=== PATIENT | male | born 1965 | race Caucasian/White ===

== ENCOUNTER → 2018-09-07 | Outpatient (CLI) | payer SELFPAY ==
[~2018-09-07] MED LIST: ACET-1966 PO; AMLO-125 PO; AMOX-362 PO; AMOX-559 PO; AZIT500T45 PO; CEPH-13 PO; DIA5 PO; DOCU-416 PO; DOXE10CA25 PO; DOXE50CA46 PO; HYDR-653 PO; IBUP800T37 PO; LOR5/325 PO; OXYC-854 PO; PER PO; SULF-198 PO; TERA2CAP54 PO; TERA5CAP59 PO; TRAM-420 PO; [UNRECOGNIZED DRUG - CODE] ENA
--- NOTE | 2018-09-07 16:11 | RADIOLOGY IMAGING REPORT ---
FACILITY: [facility] [place] PATIENT NAME: Jame Urrutia : 1965 MR: [id number] V: [id number] EXAM DATE: ORDERING PHYSICIAN: MANOJ IVERSON TECHNOLOGIST: Location: [facility] Patient: Jame Urrutia : 1965 Visit/Account:[id number] Date of Sevice: 09/07/2018 Lumbar spine 3 views: HISTORY: Low back pain COMPARISON: 08/10/2016 FINDINGS: 3 views were obtained of the lumbar spine. There are 5 nonrib-bearing lumbar-type vertebra l bodies. Alignment is anatomic. There is no spondylolisthesis or definite evidence spondylolysis. There is again noted to be mild disc space narrowing at L1-3 with mild endplate sclerosis and osteop hyte formation. Osteophytes project off the endplates at the L3-4 level. Mild facet arthropathy pre sent at L4-5. Again noted is partial sacralization of L5 versus diminutive disc space. Vertebral body height is pr eserved. There is no focal compression deformity. IMPRESSION: 1. Mild spondylitic changes most significant at L2-3, these changes have progressed slightly compare d to previous. 2. No focal compression deformity. Report Dictated By: Rima Villagran MD at 09/07/2018 3:59 PM Report E-Signed By: Rima Villagran MD at 09/07/2018 4:04 PM WSN:[email or web address]
== END ==
LOC: RAD 13:40
PROVIDERS: ATTEND Internal Medicine
DX: M54.5 Low back pain (principal)
CPT/HCPCS: 72100

== ENCOUNTER 2018-10-30 13:25 | Emergency (ER) | payer MEDICAID ==
--- NOTE | 2018-10-30 13:35 | ER Report ---
History and Physical Time Seen By MD: 13:27 HPI/ROS CHIEF COMPLAINT: Cough HISTORY OF PRESENT ILLNESS: This is a 53-year-old male who presents to the emergency department for cough. Patient states that he's had a semi-productive cough that part of one week. He states that he was up in [employer] and also works with [employer], he states that over the last several days the coughing has increased in intensity, no fevers at home, no nausea or vomiting. No rashes. Denies chest pain. He does smoke cigarettes, no history of asthma. REVIEW OF SYSTEMS: Respiratory: As above Cardiovascular: No chest pain, no palpitations. Gastrointestinal: No vomiting, no abdominal pain. Musculoskeletal: No back pain. Allergies: Coded Allergies: No Known Drug Allergies (Unverified , 10/30/18) Home Meds Active Scripts Prednisone (PREDNISONE) 20 Mg Tablet, 20 MG PO BID, #10 TAB Prov:SIM CURRAN [facility] 10/30/18 Benzonatate (BENZONATATE) 200 Mg Capsule, 200 MG PO TID PRN for COUGH, #15 CAP Prov:SIM CURRAN [facility] 10/30/18 Azithromycin 250 Mg Tab (AZITHROMYCIN 250 MG TAB) 250 Mg Tablet, 1 TAB PO QDAY, #6 TAB Take 2 tabs today and then 1 tab a day until gone. Prov:SIM CURRAN [facility] 10/30/18 Sulfamethoxazole/Trimet 800-160 Mg Tab (BACTRIM DS TABLET) 1 Each Tablet, 1 TAB PO Q12H, #20 TAB 0 Refills Prov:KHUSHBOO GARLAND MD 07/22/16 Amoxicillin/Pot Clav 875-125 Mg Tab (AUGMENTIN 875-125 TABLET) 1 Each Tablet, 1 TAB PO BID, #14 TAB 0 Refills Prov:YENNIFER BARAHONA MD 03/31/16 Oxycodone Hcl/Acet 5/325 Mg (ENDOCET 5-325 TABLET) 1 Each Tablet, 1 TAB PO Q4H PRN for PAIN, #14 TAB 0 Refills Prov:YENNIFER BARAHONA MD 03/31/16 Reported Medications Doxepin Hcl (DOXEPIN HCL) 10 Mg Capsule, 10 MG PO, CAPSULE 03/01/16 Diazepam (VALIUM) 5 Mg Tablet, 5 MG PO PRN, #5 TAB 03/01/16 Terazosin Hcl (TERAZOSIN HCL) 5 Mg Capsule, 5 MG PO QHS, CAPSULE 03/01/16 Amlodipine Besylate (AMLODIPINE BESYLATE) 5 Mg Tablet, 1 TAB PO QDAY, TAB 03/01/16 Past Medical/Surgical History The patient has a past medical and surgical history of hypothyroidism, angina, hypertension, COPD, enlarged prostate, depression, alcohol use occasional, smokes cigarettes. Reviewed Nurses Notes: Yes Hx Smoking: Yes (1PPD DAY X 38 YRS) Smoking Status: Current: Every Day Smoker Hx Substance Use Disorder: No Hx Alcohol Use: Yes (occ) Constitutional Vital Sign - Last 24 Hours 10/30/18 10/30/18 10/30/18 10/30/18 13:32 14:07 14:07 14:49 Temp 98.5 Pulse 74 59 68 Resp 16 18 18 B/P (MAP) 144/90 129/78 (95) Pulse Ox 95 91 99 O2 Delivery Room Air Room Air Physical Exam General Appearance: The patient is alert, has no immediate need for airway protection and no signs of toxicity. Eyes: Pupils equal and round no pallor or injection. ENT, Mouth: Mucous membranes are moist. Respiratory: Left lower lobe coarse on auscultation otherwise clear throughout. Dullness to the left lower lobe with percussion. Cardiovascular: Regular rate and rhythm. No murmurs, clicks or rubs. Gastrointestinal: Abdomen is soft and non tender, no masses, bowel sounds normal. Neurological: Alert and oriented 4. Moving all extremities. Following all commands. No focal neurodeficits. Skin: Warm and dry, no rashes. Musculoskeletal: Neck is supple non tender. Extremities are nontender, nonswollen and have full range of motion. DIFFERENTIAL DIAGNOSIS: After history and physical exam differential diagnosis was considered for coughing including but not limited to pulmonary infectious process, COPD, asthma, pulmonary embolus and congestive heart failure. Medical Decision Making EKG/Imaging Imaging PATIENT NAME: Jame Urrutia : 1965 MR: [id number] V: [id number] EXAM DATE: ORDERING PHYSICIAN: SIM CURRAN TECHN[place]: [place] [facility] [place]ame U[place]ut[place] : 1965 Visit/Account:[id number] Date of Sevnicolasa: 10/30/2018 Exam type: CHEST PA LAT History: Smoker, one pack per day for 38 years Comparison: March 03, 2016. Findings: The lungs are free of acute effusions, infiltrates or edema. There is no evidence of a pneumothorax or pneumomediastinum. The cardiac silhouette is normal in size. Trachea is in midline. IMPRESSION: 1. No acute cardiopulmonary process is seen Report Dictated By: Jenniffer Bishop MD at 10/30/2018 2:04 PM Report E-Signed By: Jenniffer Bishop MD at 10/30/2018 2:07 PM WSN:[email or web address] ED Course/Re-evaluation ED Course The patient was admitted to room. A history of square obtained. Differential diagnoses were considered. Patient was given a DuoNeb. Patient's states feeling better after the DuoNeb, coughing has improved. Two-view chest x-ray negative for any acute pulmonary process. I did review the results with the patient, I did tell him this is likely a viral illness but did recommend albuterol MDI, prednisone and benzonatate. Patient was agreeable, I also said I would send a prescription to the pharmacy for antibiotics, not to be filled for at least 24 hours after trialing the other medications 1st, patient was agreeable with this, also follow-up with his primary care provider for any other concerns is agreeable with this plan of care and discharged home. Decision to Disposition Date: Oct 30, 2018 Decision to Disposition Time: 14:24 Depart Departure Latest Vital Signs Vital Signs Date Time Temp Pulse Resp B/P (MAP) Pulse Ox O2 Delivery O2 Flow Rate FiO2 10/30/18 14:49 68 18 129/78 (95) 99 10/30/18 14:07 Room Air 10/30/18 13:32 98.5 Impression: Primary Impression: Bronchitis Condition: Improved Disposition: HOME OR SELF-CARE Referrals: ALISSON ABRAHAM DO (PCP) New Scripts Prednisone (PREDNISONE) 20 Mg Tablet 20 MG PO BID, #10 TAB Prov: SIM CURRAN [employer] 10/30/18 Benzonatate (BENZONATATE) 200 Mg Capsule 200 MG PO TID PRN for COUGH, #15 CAP Prov: SIM CURRAN [employer] 10/30/18 Azithromycin 250 Mg Tab (AZITHROMYCIN 250 MG TAB) 250 Mg Tablet 1 TAB PO QDAY, #6 TAB Take 2 tabs today and then 1 tab a day until gone. Prov: SIM CURRAN 10/30/18 Patient Instructions: Acute Bronchitis (ED) Additional Instructions: No indication of pneumonia, this is likely a viral illness. Be sure to drink plenty of water. Get plenty of rest. Use the inhaler for coughing episodes. Take the prednisone as prescribed for the next 5 days. Try the benzonatate to see if this will work for your coughing episodes. You can also try one spoonful of honey every 3-4 hours while awake, this may help with your coughing episodes as well. If no improvement in the next 24 hours, then you can get the antibiotics filled. Return to the ER for any other concerns or worsening symptoms. Follow-up with Dr. Abraham or any other concerns. SIM CURRAN Oct 30, 2018 13:35
[2018-10-30] MEDS ORDERED: ALBUTEROL/IPRATROPIUM 3 ML NEB NEB ONE (13:50)
--- NOTE | 2018-10-30 14:16 | RADIOLOGY IMAGING REPORT ---
[place] [facility] [place]: Jame Urrutia : 1965 MR: [id number] V: [id number] EXAM DATE: ORDERING PHYSICIAN: SIM CURRAN TECHNOLOGIST: Location: [facility] Patient: Jame Urrutia : 1965 Visit/Account:[id number] Date of Sevice: 10/30/2018 Exam type: CHEST PA LAT History: Smoker, one pack per day for 38 years Comparison: March 03, 2016. Findings: The lungs are free of acute effusions, infiltrates or edema. There is no evidence of a pneumothorax or pneumomediastinum. The cardiac silhouette is normal in size. Trachea is in midline. IMPRESSION: 1. No acute cardiopulmonary process is seen Report Dictated By: Jenniffer Bishop MD at 10/30/2018 2:04 PM Report E-Signed By: Jenniffer Bishop MD at 10/30/2018 2:07 PM WSN:[email or web address]
[2018-10-30] MEDS ORDERED: ALBUTEROL 8 GM INHALER INH ONE (14:30)
[2018-10-30] MEDS ORDERED: PRED20TA6 PO (14:31)
[2018-10-30] MEDS ORDERED: BENZ200C15 PO (14:31)
[2018-10-30] MEDS ORDERED: AZIT-18 PO (14:31)
[2018-10-30 14:49] VITALS: BP 129/78
== END 2018-10-30 14:53 | disposition home or self-care (01) ==
LOC: ER 13:28
DX: J40 Bronchitis, not specified as acute or chronic (principal); F17.210 Nicotine dependence, cigarettes, uncomplicated
CPT/HCPCS: 71046; 94640; 99283; J7620

== ENCOUNTER 2018-11-01 17:04 | Emergency (ER) | payer MEDICAID ==
[~2018-11-01 17:04] MED LIST changes: +AZIT-18 PO; +BENZ200C15 PO; +PRED20TA6 PO
--- NOTE | 2018-11-01 17:15 | ER Report ---
History and Physical Time Seen By MD: 17:11 Hx. of Stated Complaint: PATIENT WAS SEEN 2 DAYS AGO AND DIAGNOSED WITH BRONCHITIS. HE IS NOT FEELING BETTER DESPITE TAKING ANTIBIOTICS AND STEROIDS HPI/ROS CHIEF COMPLAINT: Cough, shortness of breath HISTORY OF PRESENT ILLNESS: 53-year-old male patient presents to emergency room with complaint of cough and shortness of breath. Patient states he was seen on Tuesday for the same problem. 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 On his way home he developed significant cough and shortness of breath. He denies any fevers or chills. He states that he does have some discomfort especially in the throat. He states that he has not had any nausea, vomiting or diarrhea. Patient states he's been taking antibiotics and steroids afraid bronchitis which was diagnosed 2 days ago. REVIEW OF SYSTEMS: Respiratory: Noted above Cardiovascular: No chest pain, no palpitations. Gastrointestinal: No vomiting, no abdominal pain. Musculoskeletal: No back pain. Allergies: Coded Allergies: No Known Drug Allergies (Unverified , 10/30/18) Home Meds Active Scripts Prednisone (PREDNISONE) 20 Mg Tablet, 20 MG PO BID, #10 TAB Prov:SIM CURRAN [facility] 10/30/18 Benzonatate (BENZONATATE) 200 Mg Capsule, 200 MG PO TID PRN for COUGH, #15 CAP Prov:SIM CURRAN [facility] 10/30/18 Azithromycin 250 Mg Tab (AZITHROMYCIN 250 MG TAB) 250 Mg Tablet, 1 TAB PO QDAY, #6 TAB Take 2 tabs today and then 1 tab a day until gone. Prov:SIM CURRAN [facility] 10/30/18 Sulfamethoxazole/Trimet 800-160 Mg Tab (BACTRIM DS TABLET) 1 Each Tablet, 1 TAB PO Q12H, #20 TAB 0 Refills Prov:KHUSHBOO GARLAND MD 07/22/16 Amoxicillin/Pot Clav 875-125 Mg Tab (AUGMENTIN 875-125 TABLET) 1 Each Tablet, 1 TAB PO BID, #14 TAB 0 Refills Prov:YENNIFER BARAHONA MD 03/31/16 Oxycodone Hcl/Acet 5/325 Mg (ENDOCET 5-325 TABLET) 1 Each Tablet, 1 TAB PO Q4H PRN for PAIN, #14 TAB 0 Refills Prov:YENNIFER BARAHONA MD 03/31/16 Reported Medications Doxepin Hcl (DOXEPIN HCL) 10 Mg Capsule, 10 MG PO, CAPSULE 03/01/16 Diazepam (VALIUM) 5 Mg Tablet, 5 MG PO PRN, #5 TAB 03/01/16 Terazosin Hcl (TERAZOSIN HCL) 5 Mg Capsule, 5 MG PO QHS, CAPSULE 03/01/16 Amlodipine Besylate (AMLODIPINE BESYLATE) 5 Mg Tablet, 1 TAB PO QDAY, TAB 03/01/16 Past Medical/Surgical History Patient has a past medical history of angina, hypertension, COPD, urinary urgency, frequency, hypothyroidism, alcohol abuse, anxiety. Patient has no pertinent surgical history. Reviewed Nurses Notes: Yes Hx Smoking: Yes (1PPD DAY X 38 YRS) Smoking Status: Current: Every Day Smoker Hx Substance Use Disorder: No Hx Alcohol Use: Yes (occ) Constitutional Vital Sign - Last 24 Hours 11/01/18 11/01/18 11/01/18 11/01/18 17:05 17:09 17:30 17:34 Temp 98.0 Pulse 65 80 Resp 20 B/P (MAP) 146/91 (109) 146/91 136/85 (102) Pulse Ox 92 94 O2 Delivery Room Air 11/01/18 11/01/18 11/01/18 11/01/18 17:55 17:55 18:30 18:34 Pulse 79 77 Resp 18 B/P (MAP) 148/97 (114) Pulse Ox 92 97 O2 Delivery Room Air 11/01/18 11/01/18 11/01/18 11/01/18 18:39 18:54 19:00 19:09 Pulse 73 74 70 B/P (MAP) 162/97 (118) Pulse Ox 95 97 96 Physical Exam General Appearance: The patient is alert, has no immediate need for airway protection and no current signs of toxicity. Respiratory: Chest is non tender, lungs are clear to auscultation. Cardiac: regular rate and rhythm Gastrointestinal: Abdomen is soft and non tender, no masses, bowel sounds normal. Musculoskeletal: Neck: Neck is supple and non tender. Extremities have full range of motion and are non tender. Skin: No rashes or lesions. DIFFERENTIAL DIAGNOSIS: After history and physical exam differential diagnosis was considered for shortness of breath including but not limited to pulmonary infectious process, COPD, asthma, pulmonary embolus and congestive heart failure. Medical Decision Making Data Points Result Diagram: 11/01/18 1721 11/01/18 1721 Laboratory Hematology Test 11/01/18 17:21 White Blood Count 10.5 k/uL (4.5-11.0) Red Blood Count 4.83 M/uL (4.00-5.60) Hemoglobin 14.6 g/dL (14.0-18.0) Hematocrit 41.8 % (42.0-52.0) L Mean Corpuscular Volume 86.5 fL (80.0-96.0) Mean Corpuscular Hemoglobin 30.2 pg (26.0-33.0) Mean Corpuscular Hemoglobin Concent 35.0 g/dL (32.0-36.0) Red Cell Distribution Width 13.0 % (11.5-14.5) Platelet Count 258 K/uL (150-450) Mean Platelet Volume 8.5 fL (7.2-11.1) Neutrophils (%) (Auto) 79.6 % (39.4-72.5) H Lymphocytes (%) (Auto) 13.2 % (17.6-49.6) L Monocytes (%) (Auto) 6.8 % (4.1-12.4) Eosinophils (%) (Auto) 0.1 % (0.4-6.7) L Basophils (%) (Auto) 0.3 % (0.3-1.4) Nucleated RBC Relative Count (auto) 0.3 /100WBC Neutrophils # (Auto) 8.4 K/uL (2.0-7.4) H Lymphocytes # (Auto) 1.4 K/uL (1.3-3.6) Monocytes # (Auto) 0.7 K/uL (0.3-1.0) Eosinophils # (Auto) 0.0 K/uL (0.0-0.5) Basophils # (Auto) 0.0 K/uL (0.0-0.1) Nucleated RBC Absolute Count (auto) 0.04 K/uL Chemistry Test 11/01/18 17:21 Sodium Level 142 mmol/L (137-145) Potassium Level 3.5 mmol/L (3.5-5.0) Chloride Level 109 mmol/L (98-107) Carbon Dioxide Level 21 mmol/L (22-30) Blood Urea Nitrogen 11 mg/dl (9-21) Creatinine 0.90 mg/dl (0.66-1.25) Glomerular Filtration Rate Calc > 60.0 Random Glucose 108 mg/dl (75-110) Calcium Level 8.7 mg/dl (8.4-10.2) Total Bilirubin 0.2 mg/dl (0.2-1.3) Aspartate Amino Transf (AST/SGOT) 27 U/L (0-35) Alanine Aminotransferase (ALT/SGPT) 40 U/L (0-56) Alkaline Phosphatase 59 U/L (0-126) Troponin I < 0.012 ng/ml Total Protein 6.7 g/dl (6.3-8.2) Albumin 3.9 g/dl (3.5-5.0) EKG/Imaging EKG Interpretation 12 lead EKG: Rhythm: normal sinus rhythm with a ventricular rate of 71 bpm [place]: normal QRS: normal ST segments: normal Imaging CT angiogram chest with contrast Indication: Cough and shortness of breath for one week. Comparison: None available. Technique: Axial CT images are obtained through the chest after administration of 75 mL Isovue 370 IV contrast. Reformatted coronal and sagittal images were reviewed as well as coronal MIP images. One of the following dose optimization techniques was utilized in the performance of this exam: automated exposure control; adjustment of the mA and/or kV according to the patient's size; or use of an iterative reconstruction technique. Specific details can be referenced in the facility's radiology CT exam operational policy. FINDINGS: No evidence of filling defect within the pulmonary vasculature to suggest pulmonary embolus. Heart is normal size without pericardial effusion. Aorta shows no aneurysm or dissection. The mediastinum and hilar regions show no enlarged lymph nodes or abnormal density. Lungs show mild dependent atelectasis. No consolidations, pleural effusion or pneumothorax. No discrete nodule. No focal interstitial opacities. Airways are clear. Bony structures show no acute fractures or aggressive bony lesions. Chest wall shows no enlarged axillary lymph nodes or masses. Tiny gallstone without other gallbladder abnormality. The biliary system is unremarkable. The upper abdomen is otherwise unremarkable. IMPRESSION: 1. No evidence of pulmonary embolus. 2. No acute cardiothoracic abnormality 3. Cholelithiasis with a tiny gallstone. No indication of cholecystitis. Report Dictated By: Jame Dixon at 11/01/2018 6:48 PM Report E-Signed By: Jame Dixon at 11/01/2018 6:56 PM WSN:[id number] ED Course/Re-evaluation ED Course Patient presented to the ED with a cough for the last week that has been worsening. 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 Was seen in ED 2 days ago and given a Z-pack, Benzonatate and albuterol inhaler. Has been using them all but cough continues to worsen. Physical exam reveals a well appearing male with cough. Lungs were clear to auscultation with no suspicion of consolidation. CTA, CBC, CMP, UA and EKG were orderd which showed no acute abnormalities other than a gall bladder stone. Patient was given an breathing treatment with albuterol and ipatropium which improved his cough. Patient understood his diagnosis of bronchitis and that his cough can last up to 6 weeks. Patient discharged and instructed to follow up with PCP. Decision to Disposition Date: Nov 01, 2018 Decision to Disposition Time: 19:15 Depart Departure Latest Vital Signs Vital Signs Date Time Temp Pulse Resp B/P (MAP) Pulse Ox O2 Delivery O2 Flow Rate FiO2 11/01/18 19:09 70 96 11/01/18 19:00 162/97 (118) 11/01/18 17:55 18 11/01/18 17:55 Room Air 11/01/18 17:09 98.0 Impression: Primary Impression: Bronchitis Condition: Improved Disposition: HOME OR SELF-CARE Referrals: ALISSON LOPEZ DO (PCP) Patient Instructions: Acute Bronchitis (ED) Additional Instructions: Continue with antibiotics until you finish them all. Continue other medications given including the inhaler until symptoms resolve. May use inhaler every 4-6 hours. Rest, fluids and a humidifier will help with the cough. Follow up with primary care provider. Return to ED if symptoms suddenly worsen. LIVIER VARMA Nov 01, 2018 17:15
[2018-11-01] MEDS ORDERED: NS(*) 0.9% 1000 ML BAG 1,000 ML IV ONE (17:22)
[2018-11-01] MEDS ORDERED: ALBUTEROL/IPRATROPIUM 3 ML NEB NEB ONE (17:25)
[2018-11-01] MEDS ORDERED: IOPAMIDOL 76% 100 ML INFUS BTL 100 ML ONE (17:34)
[2018-11-01 17:35] LABS: PLATELET COUNT, AUTOMATED 258 K/uL (150-450)
[2018-11-01] MEDS ORDERED: NS(*) 0.9% 50 ML BAG 50 ML ONE (17:35)
[2018-11-01 19:00] VITALS: BP 162/97
--- NOTE | 2018-11-01 19:04 | RADIOLOGY IMAGING REPORT ---
FACILITY: [facility] PATIENT NAME: Jame Urrutia : 1965 MR: [id number] V: [id number] EXAM DATE: ORDERING PHYSICIAN: LIVIER VARMA TECHNOLOGIST: Location: [facility] Patient: Jame Urrutia : 1965 Visit/Account:[id number] Date of Sevice: 11/01/2018 CT angiogram chest with contrast Indication: Cough and shortness of breath for one week. Comparison: None available. Technique: Axial CT images are obtained through the chest after administration of 75 mL Isovue 370 IV contrast. Reformatted coronal and sagittal images were reviewed as well as coronal MIP images. One of the following dose optimization techniques was utilized in the performance of this exam: auto mated exposure control; adjustment of the mA and/or kV according to the patient's size; or use of an iterative reconstruction technique. Specific details can be referenced in the facility's radiology C T exam operational policy. FINDINGS: No evidence of filling defect within the pulmonary vasculature to suggest pulmonary embolus. Heart is normal size without pericardial effusion. Aorta shows no aneurysm or dissection. The mediast inum and hilar regions show no enlarged lymph nodes or abnormal density. Lungs show mild dependent atelectasis. No consolidations, pleural effusion or pneumothorax. No discre te nodule. No focal interstitial opacities. Airways are clear. Bony structures show no acute fractures or aggressive bony lesions. Chest wall shows no enlarged axil hi lymph nodes or masses. Tiny gallstone without other gallbladder abnormality. The biliary system is unremarkable. The upper a bdomen is otherwise unremarkable. IMPRESSION: 1. No evidence of pulmonary embolus. 2. No acute cardiothoracic abnormality 3. Cholelithiasis with a tiny gallstone. No indication of cholecystitis. Report Dictated By: Jame Dixon at 11/01/2018 6:48 PM Report E-Signed By: Jame Dixon at 11/01/2018 6:56 PM WSN:[id number]
--- NOTE | 2018-11-02 09:08 | EKG ---
FACILITY: [facility] PATIENT NAME: CHELA BANGURA : [id number] MR: [id number] V: [id number] EXAM DATE: ORDERING PHYSICIAN: LIVIER VARMA TECHNOLOGIST: ROYA Test Reason : SOB Blood Pressure : / mmHG Vent. Rate : 071 BPM Atrial Rate : 071 BPM P-R Int : 160 ms QRS Dur : 096 ms QT Int : 408 ms P-R-T Axes : 067 042 046 degrees QTc Int : 443 ms Normal sinus rhythm Normal ECG When compared with ECG of 03-MAR-2016 16:14, No longer meets criteria for biatrial enlargement and LVH Confirmed by NEERAJ ONEILL ([id number]) on 11/02/2018 7:07:51 PM Referred By: ORLANDO Confirmed By:NEERAJ ONEILL
== END 2018-11-01 19:21 | disposition home or self-care (01) ==
LOC: ER 17:51
DX: J40 Bronchitis, not specified as acute or chronic (principal)
CPT/HCPCS: 71275; 84484; 85025; 93005; 94640; 96360; 99284; J7030; J7050; J7620; Q9967; 82040; 82247; 82310; 82374; 82435; 82565; 82947; 84075; 84132; 84155; 84295; 84450; 84460; 84520